=== PATIENT | male | born 1980 | race Caucasian/White ===

== ENCOUNTER 2019-02-02 09:03 | Emergency (ER) | payer MEDICAID ==
[2019-02-02] MEDS: KETOROLAC 60 MG INJ IM (11:10)
== END 2019-02-02 12:16 | disposition home or self-care (01) ==
LOC: FTE 09:03
DX: M54.5 Low back pain (principal)
CPT/HCPCS: 96372; 99284-25

== ENCOUNTER 2019-03-11 10:19 | Emergency (ER) | payer MEDICAID | END 2019-03-11 11:20 | disposition home or self-care (01) | LOC: FTE 10:19 | DX: J06.9 Acute upper respiratory infection, unspecified (principal); J02.9 Acute pharyngitis, unspecified | CPT/HCPCS: 99283; Z7502 ==